=== PATIENT | female | born 1945 | race Two or more races ===

== ENCOUNTER 2018-01-16 12:58 | Outpatient (CLI) | payer MEDICARE, OTHER ==
[~2018-01-16] VITALS: Ht 162.6 cm; Wt 69.9 kg
[2018-01-16 13:29] VITALS: BP 178/85
[2018-01-16] MEDS ORDERED: SIMVASTATIN20 MG ORAL (13:29)
[2018-01-16] MEDS ORDERED: LOSARTAN POTASS50 MG ORAL (13:29)
[2018-01-16] MEDS ORDERED: METAMUCIL PACK1 EAC1 ORAL (13:35)
--- NOTE | 2018-01-16 13:47 | GI Initial Consult Note ---
History of Present Illness General Date patient seen: Jan 16, 2018 Time patient seen: 13:38 Referring physician: JAYSON Reason for Consultation: ABDOMINAL PAIN Present Illness HPI 72 year old female patient with history of PUD presents today with complaint of LLQ abdominal pain. Also has history of GERD, in which she is taking Dexilant 60mg. Metamucil for her constipation. In addition, the patient has complaint of abdominal bloating with tea or coffee. Her last EGD/colonoscopy was approximately 4 years ago. Had recent MRI 2 weeks ago, which was negative. Home Meds Reported Medications Psyllium Husk (with Sugar) (Metamucil Packet) 3.4 Gm Powd.pack, 1 PKT ORAL DAILY , PACKET 01/16/18 Losartan Potassium* (LOSARTAN POTASSIUM*) 50 Mg Tablet, 50 MG ORAL DAILY, TAB 01/16/18 Simvastatin (ZOCOR) 20 Mg Tablet, 20 MG ORAL BEDTIME, TAB 01/16/18 Med list reviewed/reconciled: Yes Allergies: Coded Allergies: No Known Allergies (Unverified , 01/16/18) Patient History History Provided By: Patient, Medical Record PMH Narrative HTN Cholesterol Left Kidney CA PUD Past Surgical History: Left Kidney removal tubal ligation Pertinent Family History: none Social History: Denies: smoking, alcohol use, drug use, other Review of Systems All Other Systems: negative except mentioned in HPI Physical Exam Vital Signs Date Time Temp Pulse Resp B/P (MAP) Pulse Ox O2 Delivery O2 Flow Rate FiO2 01/16/18 13:29 98.2 65 16 178/85 97 98.2 Sp02 EP Interpretation: reviewed, normal General Appearance: well appearing, no apparent distress, alert Head: normocephalic EENT: PERRL/EOMI, normal ENT inspection Neck: supple Respiratory: normal breath sounds, no respiratory distress Cardiovascular: normal rate Gastrointestinal: normal inspection, non tender, soft, normal bowel sounds, non -distended Rectal: deferred Genitourinary: no CVA tenderness Musculoskeletal: normal inspection, back normal Neurologic: normal inspection, alert, oriented x3, responsive Psychiatric: normal inspection, judgement/insight normal, memory normal Skin: normal inspection, normal color, no rash, warm/dry, palpation normal, well hydrated Lymphatic: normal inspection, no adenopathy GI: Plan Problems: (1) Abdominal pain (2) GERD (gastroesophageal reflux disease) (3) Constipation (4) Bloating symptom Plan Rx Xifaxan Linzess 72mcg RTC x 1 month will consider endoscopy/colonoscopy on next visit Seen with Dr. Foster. Thank you for this patient referral. The patient was seen and examined at bedside and all new and available data was reviewed in the patients chart. I agree with the above findings, impression and plan. (Patient seen earlier today. Signature stamp does not reflect patient encounter time.). - MD Ilana PortilloOur Community Hospitaloi SHALLOT PACKER Jan 16, 2018 13:47
== END 2018-01-16 13:28 | disposition home or self-care (01) ==
LOC: PAN 12:58
DX: R10.32 Left lower quadrant pain (principal); K21.9 Gastro-esophageal reflux disease without esophagitis; R14.0 Abdominal distension (gaseous); K59.00 Constipation, unspecified; I10 Essential (primary) hypertension; Z85.528 Personal history of other malignant neoplasm of kidney; Z87.11 Personal history of peptic ulcer disease
CPT/HCPCS: 99202

== ENCOUNTER 2020-05-03 09:57 | Outpatient (CLI) | payer MEDICARE, OTHER ==
[~2020-05-03 09:57] MED LIST: LOSARTAN POTASS50 MG ORAL; METAMUCIL PACK1 EAC1 ORAL; SIMVASTATIN20 MG ORAL
[2020-05-03 10:19] VITALS: BP 137/76
[2020-05-03] MEDS ORDERED: BP MED (10:22)
--- NOTE | 2020-05-06 14:36 | General Progress Note ---
Subjective ROS Limited/Unobtainable: Yes Allergies: Coded Allergies: No Known Allergies (Unverified , 01/16/18) Objective General Appearance: alert EENT: normal ENT inspection Neck: supple Cardiovascular: normal rate Respiratory/Chest: lungs clear Abdomen: normal bowel sounds, non tender, soft Extremities: non-tender Assessment/Plan Assessment/Plan: (1) Abdominal pain (2) GERD (gastroesophageal reflux disease) (3) Constipation (4) Bloating symptom Plan Rx Xifaelder Noland plan EGD and colonoscopy Deondre Foster MD May 06, 2020 14:36
== END 2020-05-03 11:57 | disposition home or self-care (01) ==
LOC: PAN 09:57
DX: R10.9 Unspecified abdominal pain (principal)
CPT/HCPCS: 99212